=== PATIENT | male | born 1995 | race Caucasian/White ===

== ENCOUNTER 2021-01-15 18:01 | Emergency (ER) | payer OTHER ==
--- NOTE | 2021-01-15 18:09 | EDM.PDOC ---
ED HPI GENERAL MEDICAL PROBLEM - General Chief Complaint: ENT Problem Stated Complaint: SORE THROAT Departure - Discharge Information Referrals: Betina Dexter MD [Primary Care Provider] - Forms: ED Department Discharge
[2021-01-15] MEDS ORDERED: Metoclopramide 10 MG/2 ML SDV IVPUSH ONE (18:51)
[2021-01-15] MEDS ORDERED: HYDROmorphone 1 MG/ML Syringe IVPUSH ONE (18:51)
--- NOTE | 2021-01-15 18:55 | EDM.PDOC ---
<Da Friedman - Last Filed: 01/15/21 23:52> ED HPI GENERAL MEDICAL PROBLEM - General Chief Complaint: ENT Problem Stated Complaint: SORE THROAT Time Seen by Provider: 01/15/21 18:45 - Related Data Allergies Allergy/AdvReac Type Severity Reaction Status Date / Time No Known Allergies Allergy Verified 01/15/21 18:51 Home Meds: Home Meds . [No Known Home Meds] 01/15/21 [History] Course - Re-Assessments/Exams Free Text/Narrative Re-Assessment/Exam: 01/15/21 20:[address] Garcia. I agree with his history and physical examination as documented. Notified that the Group A streptococcus by BOZENA performed at the [place] walk-in clinic returned negative. The patient's CBC is remarkable for mild leukocytosis of 11.57, but with 0% bandemia, and the remainder of his CBC being unremarkable. His CMP is remarkable for slight hyperglycemia of 101, and is otherwise unremarkable. His CRP is elevated at 7.4. His mononucleosis screen is negative. His swab for the SARS-CoV-2 virus is negative. Results of the CT of the neck soft tissues with IV contrast are still pending. 01/15/21 22:58 CT of the neck soft tissues with IV contrast is read by [facility] as: 1. There is enlargement of the right palatal tonsils without an abscess 2. There are mildly enlarged bilateral cervical lymph nodes which are likely reactive. 01/15/21 23:17 Test results discussed with the patient and his girlfriend. Current guidelines recommend 24-hour admission to the hospital for IV antibiotics, IV fluid, and pain medication. Unfortunately, this facility is on diversion, therefore it would require transfer to [place]. The patient agreed. [facility] called at 23:04. Case discussed with Shana at [facility] at 23:06. Case then discussed with Dr. Becker, Hospitalist at [facility], at 23:13. She accepted the patient for placement into observation at their facility. The CT images were pushed to [facility] at 23:16. 01/15/21 23:22 The above was discussed with the patient and his girlfriend. The patient's girlfriend is willing to drive him. We will leave his IV in place, but I reiterated to the patient that he needs to go directly to the [facility] ED to get registered, and not stop off anywhere between here and there. Departure - Departure Time of Disposition: 23:23 Disposition: DC/Tfer to Acute Hospital 02 Condition: Good Clinical Impression: Peritonsillar cellulitis - Discharge Information *PRESCRIPTION DRUG MONITORING PROGRAM REVIEWED*: Not Applicable *COPY OF PRESCRIPTION DRUG MONITORING REPORT IN PATIENT PATI: Not Applicable Referrals: Betina Dexter MD [Primary Care Provider] - Forms: ED Department Discharge <Reggie Garcia - Last Filed: 01/18/21 07:12> ED HPI GENERAL MEDICAL PROBLEM - General Source of Information: Reports: Patient History Limitations: Reports: No Limitations - History of Present Illness INITIAL COMMENTS - FREE TEXT/NARRATIVE: 25-year-old male presents to the ED after being seen at the walk-in clinic at [place] this evening by Dr. Dexter. Patient presents with a sore throat that started Monday morning worsened over Monday and . Marked increase in pain today on the right side of his throat with marked difficulty talking and swallowing. He was able to take soft diet yesterday but only fluids today. He believes he has voided twice today. Associated fever with no definitive chills. He states he thinks he had strep throat in his latter years of high school but no tonsillitis symptoms since that time. A rapid strep screen has apparently been collected at [facility] and the results are to be forwarded to us. Voice is not muffled. He winces however upon swallowing his saliva Onset: Gradual Onset Date: 01/12/21 (Start of what he felt was a regular sore throat.) Duration: Day(s):, Constant, Getting Worse Location: Reports: Neck (Severe sore throat primarily right side. Difficult to talk and to swallow) Quality: Reports: Ache, Stabbing Severity: Severe (Pain is sharp and stabbing with swallowing 9 and a 10) Improves with: Reports: Medication (Has taken Tylenol twice today.) Worsens with: Reports: Other (Trying to swallow even liquids or his saliva) Context: Reports: Other (Spontaneous occurrence). Denies: Activity, Exercise, Lifting, Sick Contact, Trauma Associated Symptoms: Reports: Fever/Chills, Loss of Appetite, Malaise. Denies: Chest Pain, Cough, cough w sputum, Diaphoresis (Fever but no chills.), Headaches, Nausea/Vomiting, Rash, Seizure, Shortness of Breath, Syncope, Weakness Treatments CARDIOTHORACIC PHYSIOTHERAPIST: Reports: Acetaminophen (1 g twice today.) Throat Pain Score (Numeric/FACES): 10 Right Ear Pain Score (Numeric/FACES): 5 Headache Pain Score (Numeric/FACES): 5 Social & Family History - Tobacco Use Tobacco Use Status *Q: Never Tobacco User - Alcohol Use Alcohol Use History: Yes Alcohol Use Frequency: Socially - Living Situation & Occupation Living situation: Reports: Single Occupation: Student ED ROS ENT - Review of Systems Review Of Systems: See Below Constitutional: Reports: Fever, Fatigue, Decreased Appetite. Denies: Chills, Weight Loss HEENT: Reports: Throat Pain (Right side), Throat Swelling Respiratory: Reports: No Symptoms Cardiovascular: Reports: No Symptoms Endocrine: Reports: No Symptoms GI/Abdominal: Reports: Decreased Appetite (Still hungry but cannot swallow.) : Reports: Other (He believes he has voided twice today.) Musculoskeletal: Reports: No Symptoms Skin: Reports: No Symptoms Neurological: Reports: No Symptoms Psychiatric: Reports: No Symptoms Hematologic/Lymphatic: Reports: No Symptoms Immunologic: Reports: No Symptoms ED EXAM, ENT - Physical Exam Exam: See Below Exam Limited By: No Limitations General Appearance: Alert, WD/WN, Mild Distress, Other (Patient winces quite significantly with attempts to swallow his saliva. It also hurts to talk. He is warm to palpation and temperature is recorded at 38.3. Heart rate was 104 and sinus at the bedside. Respiratory is 20 with O2 sats of 97% room air. BP 147/89.) Eye Exam: Bilateral Eye: Normal Inspection (No blepharal pallor or scleral icterus.), PERRL Ears: Normal TMs Mouth/Throat: Normal Gums, Normal Teeth, Peritonsillar Mass, Pharyngeal Erythema (Right side moderate), Tonsillar Erythema ( bilateral tonsillar exudates. Severe tonsillar erythema and erythema of the soft palate right side combined with developing peritonsillar abscess), Tonsillar Exudates (Severe on the right side), Tonsillar Swelling Head: Atraumatic, Normocephalic Neck: Normal Inspection, Lymphadenopathy (R) (Mild), Tender Lateral (Tender lateral aspect of the neck with pain worsening with left lateral rotation). No: Supple, Carotid Bruit, Lymphadenopathy (L) Respiratory/Chest: Lungs Clear, Normal Breath Sounds, No Accessory Muscle Use, Chest Non-Tender, Respiratory Distress (Mild tachypnea) Cardiovascular: Normal Peripheral Pulses, No Edema, No Gallop, No JVD, No Murmur, No Rub, Tachycardia (Mild tachycardia at rest) GI/Abdominal: Normal Bowel Sounds, Soft, Non-Tender, No Organomegaly, No Mass, Pelvis Stable, Other (No surgical scars). No: Guarding, Rigid, Rebound, Tender, Hepatomegaly, Splenomegaly Back: Normal Inspection, Full Range of Motion. No: CVA Tenderness (L), CVA Tenderness (R) Extremities: Normal Inspection, Normal Range of Motion, Non-Tender, No Pedal Edema Neurological: Alert, Oriented, CN II-XII Intact, Normal Cognition Psychiatric: Normal Mood, Anxious (Mildly anxious.) Skin: Warm, Dry, Intact, Normal Color, No Rash Course - Vital Signs Last Recorded V/S: Last Vital Signs Temp 38.3 C H 01/15/21 18:55 Pulse 104 H 01/15/21 18:55 Resp 20 01/15/21 18:55 BP 147/89 H 01/15/21 18:55 Pulse Ox 97 01/15/21 18:55 - Orders/Labs/Meds Labs: Laboratory Tests 01/15/21 01/15/21 01/15/21 Range/Units 19:15 19:15 19:15 WBC 11.57 H (4.23-9.07) K/mm3 RBC 5.27 (4.63-6.08) M/mm3 Hgb 15.1 (13.7-17.5) gm/dl Hct 44.4 (40.1-51.0) % MCV 84.3 (79.0-92.2) fl MCH 28.7 (25.7-32.2) pg MCHC 34.0 (32.2-35.5) g/dl RDW Std Deviation 40.1 (35.1-43.9) fL Plt Count 220 (163-337) K/mm3 MPV 9.6 (9.4-12.3) fl Neutrophils % (Manual) 72 H (40-60) % Band Neutrophils % 0 (0-10) % Lymphocytes % (Manual) 15 L (20-40) % Atypical Lymphs % 0 % Monocytes % (Manual) 11 H (2-10) % Eosinophils % (Manual) 0 L (0.8-7.0) % Basophils % (Manual) 2 H (0.2-1.2) Platelet Estimate Adequate RBC Morph Comment Normal Sodium 139 (136-145) mEq/L Potassium 3.8 (3.5-5.1) mEq/L Chloride 100 (98-107) mEq/L Carbon Dioxide 28 (21-32) mEq/L Anion Gap 14.8 (5-15) BUN 6 L (7-18) mg/dL Creatinine 1.0 (0.7-1.3) mg/dL Est Cr Clr Drug Dosing 122.87 mL/min Estimated GFR (MDRD) > 60 (>60) mL/min BUN/Creatinine Ratio 6.0 L (14-18) Glucose 101 H (70-99) mg/dL Calcium 9.1 (8.5-10.1) mg/dL Total Bilirubin 1.1 H (0.2-1.0) mg/dL AST 15 (15-37) U/L ALT 38 (16-63) U/L Alkaline Phosphatase 78 (46-116) U/L C-Reactive Protein 7.4 H* (<1.0) mg/dL Total Protein 7.7 (6.4-8.2) g/dl Albumin 4.2 (3.4-5.0) g/dl Globulin 3.5 gm/dL Albumin/Globulin Ratio 1.2 (1-2) Monoscreen Negative (NEGATIVE) SARS-CoV-2 RNA ([facility]) (NEGATIVE) 01/15/21 Range/Units 19:55 WBC (4.23-9.07) K/mm3 RBC (4.63-6.08) M/mm3 Hgb (13.7-17.5) gm/dl Hct (40.1-51.0) % MCV (79.0-92.2) fl MCH (25.7-32.2) pg MCHC (32.2-35.5) g/dl RDW Std Deviation (35.1-43.9) fL Plt Count (163-337) K/mm3 MPV (9.4-12.3) fl Neutrophils % (Manual) (40-60) % Band Neutrophils % (0-10) % Lymphocytes % (Manual) (20-40) % Atypical Lymphs % % Monocytes % (Manual) (2-10) % Eosinophils % (Manual) (0.8-7.0) % Basophils % (Manual) (0.2-1.2) Platelet Estimate RBC Morph Comment Sodium (136-145) mEq/L Potassium (3.5-5.1) mEq/L Chloride (98-107) mEq/L Carbon Dioxide (21-32) mEq/L Anion Gap (5-15) BUN (7-18) mg/dL Creatinine (0.7-1.3) mg/dL Est Cr Clr Drug Dosing mL/min Estimated GFR (MDRD) (>60) mL/min BUN/Creatinine Ratio (14-18) Glucose (70-99) mg/dL Calcium (8.5-10.1) mg/dL Total Bilirubin (0.2-1.0) mg/dL AST (15-37) U/L ALT (16-63) U/L Alkaline Phosphatase (46-116) U/L C-Reactive Protein (<1.0) mg/dL Total Protein (6.4-8.2) g/dl Albumin (3.4-5.0) g/dl Globulin gm/dL Albumin/Globulin Ratio (1-2) Monoscreen (NEGATIVE) SARS-CoV-2 RNA ([facility]) Negative (NEGATIVE) Meds: Medications Discontinued Medications Generic Name Dose Route Start Last Admin Trade Name [place] PRN Reason Stop Dose Admin Dexamethasone 12 mg 01/15/21 19:05 01/15/21 23:42 Dexamethasone 10 Mg/Ml Sdv IVPUSH 01/15/21 19:06 12 mg ONETIME ONE Administration Dexamethasone Confirm 01/15/21 23:30 01/15/21 23:43 Dexamethasone 10 Mg/Ml Sdv Administered 01/15/21 23:31 Not Given Dose 20 mg .ROUTE .STK-MED ONE Hydromorphone HCl 1 mg 01/15/21 18:51 01/15/21 19:44 Hydromorphone 1 Mg/Ml Syringe IVPUSH 01/15/21 18:52 1 mg ONETIME ONE Administration Dextrose/Sodium Chloride 1,000 mls @ 999 mls/hr 01/15/21 19:00 01/15/21 19:44 Dextrose 5%-Normal Saline IV 999 mls/hr ASDIRECTED [place] Administration Clindamycin Phosphate 900 mg/ 50 mls @ 100 mls/hr 01/15/21 19:04 01/15/21 19:44 Premix IV 01/15/21 19:33 100 mls/hr ONETIME ONE Administration Iopamidol 100 ml 01/15/21 19:06 01/15/21 19:30 Iopamidol 612 Mg/Ml 100 Ml Bottle IVPUSH 01/15/21 19:07 100 ml ONETIME ONE Administration Metoclopramide HCl 10 mg 01/15/21 18:51 01/15/21 19:43 Metoclopramide 10 Mg/2 Ml Sdv IVPUSH 01/15/21 18:52 10 mg ONETIME ONE Administration Sodium Chloride 10 ml 01/15/21 19:06 01/15/21 19:31 Sodium Chloride 0.9% 10 Ml Sdv FLUSH 01/15/21 19:07 10 ml ONETIME ONE Administration - Radiology Interpretation Free Text/Narrative:: 25-year-old male presents to the ED from the [place] walk-in clinic. He presented there due to gradually worsening sore throat over the last 4 days. Today he can barely swallow his own saliva and has had only a few sips of fluids. He believes he has voided twice but urine is dark in color. Examination there suggested early peritonsillar abscess on the right side. A rapid strep screen was performed over there and the results are pending and are supposed to be sent to us. On my evaluation patient is febrile he has bilateral follicular tonsillitis with exudate and marked erythema and swelling of the right. Tonsillar fold and soft palate compatible with developing peritonsillar infiltrate/abscess. Plan IV D5 normal saline at open. Routine labs to be done including CRP and blood cultures x2. He will have his soft tissue neck CT scan to rule out significant abscess that would require surgical drainage. Will be given Dilaudid 1 mg IV with Reglan 10 mg IV for pain relief. Toradol may be helpful as well but will be withheld until no evidence that surgical drainage is required .I will give him dexamethasone 12 mg IV as well. He will then receive clindamycin 900 mg IV after blood cultures x2 have been collected. Labs will include a Monospot. COVID-19 screen will be obtained in case he needs to go to surgery. - Re-Assessments/Exams Free Text/Narrative Re-Assessment/Exam: 01/15/21 19:06 care will be transferred to Dr. Friedman as it is change of shift. His labs will be pending for about an hour and CT soft tissue scan of the neck will be performed within the next hour. 01/15/21 19:08 [facility] called over now and indicated the patient's rapid strep screen is negative.
[2021-01-15] MEDS ORDERED: Dextrose 5%-0.9% NaCl 1,000 ML IV SCH (19:00)
[2021-01-15] MEDS ORDERED: Clindamycin Phosphate in D5W 900 MG in Premix Bag 1 BAG IV ONE ×2 (19:04)
[2021-01-15] MEDS ORDERED: Dexamethasone 10 MG/ML SDV IVPUSH ONE (19:05)
[2021-01-15] MEDS ORDERED: Iopamidol 612 MG/ML 100 ML Bottle IVPUSH ONE (19:06)
[2021-01-15] MEDS ORDERED: Sodium Chloride 0.9% 10 ML SDV FLUSH ONE (19:06)
[2021-01-15] MEDS ORDERED: Dexamethasone 10 MG/ML SDV ONE (23:30)
--- NOTE | 2021-01-17 09:00 | CT ---
CT neck Technique: Multiple axial sections were obtained from above the external auditory canals inferiorly through the lung apices. Intravenous contrast was utilized. Reconstructed coronal and sagittal images were obtained. Comparison: No prior neck imaging is available. Findings: There is edematous change seen within the right palatine tonsil. Lesser edematous change is noted within the left palatine tonsil. There is no focal fluid collection seen at this time to indicate an abscess. Right palatine tonsil causes mild mass-effect upon the adjacent pharynx. Small retention cyst is noted within the inferior left maxillary sinus which measures 1.2 cm. Parotid salivary glands and submandibular salivary gland show no abnormality. Visualized lung apices are clear. Thyroid gland is within normal limits. Scattered lymph nodes are seen within the neck with no findings of enlarged lymph node being seen. Bone window settings were reviewed. No acute osseous abnormality is appreciated. Impression: 1. Soft tissue swelling within both palatine tonsils which is worse on the right side and causes mild mass-effect upon the adjacent pharynx. 2. No focal fluid collections are seen to indicate abscess. 3. Other nonacute findings as noted above. Diagnostic code #3 I agree with preliminary report from [facility], finalized on 01/15/21, 11:55 PM CDT, code 1
== END 2021-01-15 21:00 ==
LOC: JD.ED 18:01
DX: J36 Peritonsillar abscess (principal); R79.82 Elevated C-reactive protein (CRP); Z20.822 Contact with and (suspected) exposure to COVID-19
CPT/HCPCS: 36415; 70491; 80053; 85007; 85027; 86140; 86308; 87040; 87635; 96365; 96375; 99284; J1100; J1170; J2765; J3490; J7042; Q9967; U0002